=== PATIENT | female | born 1980 | race Caucasian/White ===

== ENCOUNTER 2016-12-09 19:48 | Emergency (ER) | payer SELFPAY | END 2016-12-09 21:17 | disposition left against medical advice (07) | LOC: ER 21:00 | DX: Z53.21 Procedure and treatment not carried out due to patient leaving prior to being seen by health care provider (principal) ==

== ENCOUNTER 2016-12-10 01:53 | Emergency (ER) | payer MEDICAID ==
[~2016-12-10] VITALS: Ht 154.9 cm; Wt 66.0 kg
[2016-12-10] MEDS ORDERED: HYDROCODONE/ACETAMINOPHEN 10/325MG TABLET PO ONE (05:00)
[2016-12-10] MEDS ORDERED: LIDOCAINE HCL 2%/EPINEPHRINE/PF 10 ML VIAL INFIL ONE ×2 (05:45→08:15)
[2016-12-10] MEDS ORDERED: LIDOCAINE HCL 4% CREAM 76GM TUBE TP PRN (08:15)
[2016-12-10] MEDS ORDERED: NAPROXEN 375MG TABLET PO ONE (09:00)
[2016-12-10] MEDS ORDERED: CEPHALEXIN 500MG CAPSULE PO ONE (09:00)
[2016-12-10 09:31] VITALS: BP 127/67
== END 2016-12-10 09:35 | disposition home or self-care (01) ==
LOC: ER 04:14
DX: N75.0 Cyst of Bartholin's gland (principal); Z98.890 Other specified postprocedural states
CPT/HCPCS: 56420; 99284; J3490; Z7610; 99283

== ENCOUNTER 2017-08-13 13:33 | Emergency (ER) | payer MEDICAID ==
[~2017-08-13] VITALS: Ht 154.9 cm; Wt 64.0 kg
[2017-08-13 13:44] VITALS: BP 120/83
== END 2017-08-13 17:00 | disposition home or self-care (01) ==
LOC: ER 14:45
DX: S40.012A Contusion of left shoulder, initial encounter (principal); R51 Headache; S00.81XA Abrasion of other part of head, initial encounter; V13.4XXA Pedal cycle driver injured in collision with car, pick-up truck or van in traffic accident, initial encounter; Y93.55 Activity, bike riding; Y92.414 Local residential or business street as the place of occurrence of the external cause
CPT/HCPCS: 73030; 81025; 99284

== ENCOUNTER 2017-12-30 22:10 | Emergency (ER) | payer MEDICAID, OTHER ==
[~2017-12-30] VITALS: Ht 154.9 cm; Wt 61.2 kg
[2017-12-30 22:39] VITALS: BP 129/83
== END 2017-12-31 00:25 | disposition left against medical advice (07) ==
LOC: ER 22:10
DX: Z53.21 Procedure and treatment not carried out due to patient leaving prior to being seen by health care provider (principal); F17.200 Nicotine dependence, unspecified, uncomplicated

== ENCOUNTER 2017-12-31 02:39 | Emergency (ER) | payer OTHER ==
[~2017-12-31] VITALS: Ht 154.9 cm; Wt 62.0 kg
[2017-12-31 03:16] VITALS: BP 109/67
== END 2017-12-31 08:24 | disposition left against medical advice (07) ==
LOC: ER 02:39
DX: Z53.21 Procedure and treatment not carried out due to patient leaving prior to being seen by health care provider (principal)

== ENCOUNTER 2018-04-01 21:08 | Emergency (ER) | payer OTHER ==
[~2018-04-01] VITALS: Ht 154.9 cm; Wt 61.0 kg
[2018-04-01 22:53] LABS: CLARITY URINE CLOUDY (CLEAR); COLOR URINE YELLOW (YELLOW); KETONES URINE NEGATIVE (NEGATIVE); LEUKOCYTE ESTERASE URINE 2+ (NEGATIVE); NITRITE URINE NEGATIVE (NEGATIVE); OCCULT BLOOD URINE 3+ (NEGATIVE); PROTEIN URINE TRACE (NEGATIVE); SPECIFIC GRAVITY URINE 1.029 (1.005-1.030)
[2018-04-02] MEDS ORDERED: KETOROLAC 30MG/ML VIAL IV STA (06:23)
[2018-04-02 06:56] LABS: BASOPHILS % 0.4 % (0.0-2.0); EOSINOPHILS % 3.2 % (0.0-5.0); HEMATOCRIT. 40.2 % (36.0-48.0); HEMOGLOBIN. 13.7 g/dL (12.0-16.0); MEAN CORPUSCULAR HEMOGLOBIN 31.5 pg (28.0-32.0); MEAN CORPUSCULAR VOLUME 92.5 fL (81.0-99.0); MEAN PLATELET VOLUME 8.7 fl (7.4-10.4); MONOCYTES % 6.9 % (2.0-8.0); NEUTROPHILS % 62.5 % (40.0-76.0); PLATELET 194 x1000/uL (130-400); RED BLOOD CELL COUNT 4.35 mill/uL (4.2-5.4); RED CELL DISTRIBUTION WIDTH 13.1 % (11.6-14.6)
[2018-04-02 07:00] LABS: CHLORIDE 105 mEq/L (98-107)
[2018-04-02 07:09] LABS: CREATINE KINASE 77 IU/L (26-192)
[2018-04-02 07:21] VITALS: BP 135/87
== END 2018-04-02 07:16 | disposition home or self-care (01) ==
LOC: ER 23:20
DX: R07.89 Other chest pain (principal); N39.0 Urinary tract infection, site not specified; F17.200 Nicotine dependence, unspecified, uncomplicated; F15.10 Other stimulant abuse, uncomplicated
CPT/HCPCS: 36415; 71045; 80053; 81003; 81025; 82550; 83690; 85025; 96374; 99285; J1885

== ENCOUNTER 2019-03-30 17:53 | Emergency (ER) | payer OTHER ==
[~2019-03-30] VITALS: Ht 154.9 cm; Wt 61.0 kg
[2019-03-30 19:52] VITALS: BP 114/83
[2019-03-30 20:28] LABS: EOSINOPHILS % 3.8 % (0.0-5.0); HEMATOCRIT. 40.7 % (36.0-48.0); LYMPHOCYTES % 34.7 % (20.0-50.0); MEAN CORPUSCULAR HEMOGLOBIN 32.4 pg (28.0-32.0); MEAN CORPUSCULAR VOLUME 93.9 fL (81.0-99.0); MEAN PLATELET VOLUME 8.6 fl (7.4-10.4); MONOCYTES % 6.9 % (2.0-8.0); NEUTROPHILS % 53.6 % (40.0-76.0); PLATELET 196 x1000/uL (130-400); RED BLOOD CELL COUNT 4.33 mill/uL (4.2-5.4)
[2019-03-30 20:33] LABS: CHLORIDE 108 mEq/L (98-107)
== END 2019-03-30 22:56 | disposition left against medical advice (07) ==
LOC: ER 22:00
DX: S22.32XA Fracture of one rib, left side, initial encounter for closed fracture (principal); F12.10 Cannabis abuse, uncomplicated; F17.210 Nicotine dependence, cigarettes, uncomplicated; Z90.49 Acquired absence of other specified parts of digestive tract; T74.21XA Adult sexual abuse, confirmed, initial encounter; Y08.89XA Assault by other specified means, initial encounter; Y93.89 Activity, other specified; Y92.89 Other specified places as the place of occurrence of the external cause
CPT/HCPCS: 36415; 71101; 81025; 99284

== ENCOUNTER 2019-10-15 15:38 | Emergency (ER) | payer MEDICAID, OTHER ==
[~2019-10-15] VITALS: Ht 167.6 cm; Wt 73.0 kg
[2019-10-15 15:51] VITALS: BP 108/70
== END 2019-10-15 18:44 | disposition left against medical advice (07) ==
LOC: ER 15:38
DX: F10.129 Alcohol abuse with intoxication, unspecified (principal); Y90.9 Presence of alcohol in blood, level not specified
CPT/HCPCS: 99283